=== PATIENT | male | born 1975 | race Caucasian/White ===

== ENCOUNTER 2021-10-28 18:15 | Emergency (ER) | payer OTHER ==
[2021-10-28] MEDS ORDERED: TETANUS/DIPHTHERIA/PERTUSSIS 0.5 ML SYRINGE IM ONE (19:12)
[2021-10-28] MEDS ORDERED: LIDOCAINE 1%-EPI 1:100000 20 ML MDV SUBQ STA (19:12)
--- NOTE | 2021-10-28 19:56 | ED Physician Documentation ---
History of Present Illness - Stated complaint Stated Complaint: FISH HOOK IN R HAND - Chief complaint Chief Complaint: Laceration - Additonal information Additional information: 46 year old male presents with a large fish hook in his right ring finger. Tetanus updated today. pt is right hand dominate Review of Systems Constitutional: reports: Reviewed and negative Throat: reports: Reviewed and negative Cardiac: reports: Reviewed and negative Respiratory: reports: Reviewed and negative GI: reports: Reviewed and negative : reports: Reviewed and negative Skin: reports: Lesions (right finger finger hook embedded) PD PAST MEDICAL HISTORY - Present Medications Home Medications: Ambulatory Orders Medication Instructions Recorded Confirmed cephALEXin [Keflex] 500 mg PO Q8H 5 Days #15 cap 10/28/21 - Allergies Allergies/Adverse Reactions: Allergies Allergy/AdvReac Type Severity Reaction Status Date / Time No Known Drug Allergies Allergy Verified 10/28/21 18:28 PD ED PE EXPANDED - Extremities Extremities: Right finger(s) (Large hook embedded palmar side right ring finger at DIP joint. Able to flex and extend against resistance) Results - Vitals Vitals: Vital Signs - 24 hr 10/28/21 18:28 Temperature 36.5 C Heart Rate 80 Respiratory 16 Rate Blood Pressure 149/90 H O2 Saturation 96 Oxygen O2 Source Room air Procedures - FB removal FB location: Subcutaneous FB removal preparation: Local anesthesia-specify (1% lidocaine) Removal method: Irrigated/flushed, Foreceps FB removal aftercare: No complications, Patient tolerated well, Removed successfully PD MEDICAL DECISION MAKING - ED course Complexity details: reviewed results, re-evaluated patient, d/w patient ED course: 46-year-old male presents emergency department with a large fishhook embedded at the PIP joint of his right ring finger. It was successfully removed after local anesthesia using countertraction. After removal of the hook no evidence of tendon injury. Tetanus was updated today in the ER. This was a dirty hook that had been in water and with bait and fish. Prescription for Keflex was sent to [facility]. Emergent worrisome return precautions discussed. Departure - Departure Disposition: 01 Home, Self Care Clinical Impression: Fish hook injury of finger of right hand Qualifiers: Encounter type: initial encounter Qualified Code(s): S69.91XA - Unspecified injury of right wrist, hand and finger(s), initial encounter Condition: Stable Record reviewed to determine appropriate education?: Yes Prescriptions: cephALEXin [Keflex] 500 mg PO Q8H 5 Days #15 cap Comments: Didier the hook was successfully removed from your finger. It does not appear as though there is significant tendon injury. However this wound is at high risk for infection. The Keflex has been electronically sent to [facility]. Please take it 3 times a day for the next 5 days. Any antibiotic ointment such as Neosporin or bacitracin over the wound should be sufficient. You may benefit from a warm compress 2-3 times a day to help prevent the occurrence of infection. However if you develop finger redness, swelling fevers or milky drainage then please return immediately to any ER for reevaluation. Your tetanus was updated today and is good for the next 7 to 10 years
[2021-10-28] MEDS ORDERED: cephALEXin 250 MG CAPSULE PO STA (20:37)
--- NOTE | 2021-10-28 20:38 | XRAY Report ---
PROCEDURE: Finger(s) RT INDICATIONS: fish hook TECHNIQUE: AP hand, 2 views of the fourth finger(s) acquired. COMPARISON: None. FINDINGS: Bones: No fractures or dislocations. No suspicious bony lesions. Soft tissues: [place] projects over the palmar soft tissues overlying the fourth distal interphalang eal joint. IMPRESSION: 1. [place] projecting over the fourth digit soft tissues as detailed above. Reviewed by: Mart Savage MD on 10/28/2021 8:36 PM [facility] Approved by: Mart Savage MD on 10/28/2021 8:36 PM [facility] Station ID: [id number]
[2021-10-28 20:50] VITALS: BP 130/80
== END 2021-10-28 20:49 | disposition home or self-care (01) ==
LOC: ED 18:15
DX: S61.244A Puncture wound with foreign body of right ring finger without damage to nail, initial encounter (principal); W45.8XXA Other foreign body or object entering through skin, initial encounter; Z23 Encounter for immunization
CPT/HCPCS: 73140; 90471; 90715; 99281; 99283; A9270